=== PATIENT | male | born 1970 | race Caucasian/White ===

== ENCOUNTER 2023-01-12 13:47 | Inpatient (IN) | payer OTHER ==
[2023-01-12 14:24] VITALS: BMI 37.8
[2023-01-12] MEDS ORDERED: ACETAMINOPHEN 325 MG TABLET (FP) PO PRN (17:51)
[2023-01-12] MEDS ORDERED: LOPERAMIDE HCL 2 MG CAPSULE PO PRN (17:51)
[2023-01-12] MEDS ORDERED: hydrOXYzine PAMOATE 25 MG CAPSULE (FP) PO PRN (17:51)
[2023-01-12] MEDS ORDERED: guaiFENesin 600 MG TABLET.ER (FP) PO PRN (17:51)
[2023-01-12] MEDS ORDERED: POLYETHYLENE GLYCOL (HEALTHYLAX) 3350 17 GM PACKET PO PRN (17:51)
[2023-01-12] MEDS ORDERED: TUBERCULIN PPD 5 TU/0.1ML SYRINGE (IN PATIENT USE ONLY) ID ONE (17:51)
[2023-01-12] MEDS ORDERED: AMMONIUM LACTATE 12% LOTION 225 GM BOTTLE TP PRN (17:51)
[2023-01-12] MEDS ORDERED: NICOTINE 10 MG CARTRIDGE (INHALER) IH PRN (17:51)
[2023-01-12] MEDS ORDERED: MAGNESIUM HYDROX 2400MG/30ML ORAL SUSPENSION 30 ML CUP PO PRN (17:51)
[2023-01-12] MEDS ORDERED: NALOXONE HCL (KLOXXADO) 8 MG SPRAY NS PRN (17:51)
[2023-01-12] MEDS ORDERED: IBUPROFEN 400 MG TABLET (FP) PO PRN (17:51)
[2023-01-12] MEDS ORDERED: BENZOCAINE/MENTHOL (CHLORASEPTIC ) LOZENGE MM PRN (17:51)
[2023-01-12] MEDS ORDERED: IBUPROFEN 600 MG TABLET (FP) PO PRN (17:51)
[2023-01-12] MEDS ORDERED: MAG HYDROX/AL HYDROX/SIMETH 30 ML UNIT-DOSE CUP PO PRN (17:51)
[2023-01-12] MEDS ORDERED: BENZONATATE 200 MG CAPSULE PO PRN (17:51)
[2023-01-12] MEDS ORDERED: COLLOIDAL OATMEAL 1 BAR EACH TP PRN (17:51)
[2023-01-12] MEDS ORDERED: NALOXONE HCL 0.4 MG/ML VIAL IM PRN (17:51)
[2023-01-13] MEDS ORDERED: TUBERCULIN PPD 5 TU/0.1ML VIAL ID ONE (01:39)
[2023-01-13] MEDS: MELATONIN 5 MG TABLETS PO SCH ×2 (01:41→21:19)
[2023-01-13] MEDS: THIAMINE HCL 100 MG TABLET (FP) PO SCH ×2 (01:41→21:19)
[2023-01-13] MEDS: NICOTINE 21 MG/24 HOURS TOPICAL PATCH TD SCH (11:08)
[2023-01-13] MEDS: PRENATAL VITAMINS W/ FOLIC ACID TABLET (FP) PO SCH (11:08)
[2023-01-13 11:57] LABS: HEMATOCRIT 36.7 % (35.4-49); HEMOGLOBIN 12.8 GM/dL (11.7-16.9); MCH 32.3 pg (25.7-33.7); MEAN CELL VOLUME 92.3 fl (80-96); MEAN PLT VOLUME 7.2 fl (7.5-11.1); PLATELET COUNT 391 10^3/uL (134-434); RBC 3.98 M/mm3 (4.00-5.60); RDW 13.2 % (11.9-15.9); WHITE BLOOD COUNT 7.3 K/mm3 (4.0-10.0)
[2023-01-13 12:09] LABS: CALCIUM 8.4 mg/dL (8.5-10.1)
[2023-01-13 12:10] LABS: BLOOD UREA NITROGEN 13.8 mg/dL (7-18)
[2023-01-13 12:13] LABS: CREATININE 0.9 mg/dL (0.55-1.3)
[2023-01-13 12:14] LABS: BILIRUBIN,TOTAL 0.3 mg/dL (0.2-1); TOT PROT 6.1 g/dl (6.4-8.2)
[2023-01-13] MEDS ORDERED: traZODone HCL 100 MG TABLET (FP) PO SCH (22:00)
[2023-01-14] MEDS: NICOTINE 21 MG/24 HOURS TOPICAL PATCH TD SCH (10:33)
[2023-01-14] MEDS: PRENATAL VITAMINS W/ FOLIC ACID TABLET (FP) PO SCH (10:34)
[2023-01-14 17:19] VITALS: BP 134/78; PULSE 76; RESP 20; TEMP 96.9
[2023-01-15] MEDS ORDERED: PNEUMOC 20-VAL CONJ-DIP CRM/PF 0.5 ML SYRINGE IM ONE (12:00)
== END 2023-01-14 17:44 | disposition home or self-care (01) | DRG 895 ==
LOC: YASAS 13:47 → Y3W 01-13 01:16
PROVIDERS: ADMIT Allergy & Immunology; ATTEND Psychiatry & Neurology Pain Medicine
PROC: HZ42ZZZ Group Counseling for Substance Abuse Treatment, Cognitive-Behavioral (ICD-10-PCS; principal; 2023-01-13)
DX: F10.20 Alcohol dependence, uncomplicated (principal); F14.20 Cocaine dependence, uncomplicated; F17.210 Nicotine dependence, cigarettes, uncomplicated; F25.0 Schizoaffective disorder, bipolar type; G47.33 Obstructive sleep apnea (adult) (pediatric); Z62.810 Personal history of physical and sexual abuse in childhood; E66.9 Obesity, unspecified; Z68.37 Body mass index [BMI] 37.0-37.9, adult
CPT/HCPCS: 36415; 80053; 85027; 86780; 87811; C9803-CS; U0003; U0005

== ENCOUNTER 2023-01-16 11:59 | Inpatient (IN) | payer OTHER ==
[2023-01-16 12:58] VITALS: BMI 38.0
[2023-01-16] MEDS ORDERED: NALOXONE HCL (KLOXXADO) 8 MG SPRAY NS PRN (13:02)
[2023-01-16] MEDS ORDERED: BENZOCAINE/MENTHOL (CHLORASEPTIC ) LOZENGE MM PRN (13:02)
[2023-01-16] MEDS ORDERED: MELATONIN 5 MG TABLETS PO PRN (13:02)
[2023-01-16] MEDS ORDERED: guaiFENesin 600 MG TABLET.ER (FP) PO PRN (13:02)
[2023-01-16] MEDS ORDERED: MAGNESIUM HYDROX 2400MG/30ML ORAL SUSPENSION 30 ML CUP PO PRN (13:02)
[2023-01-16] MEDS ORDERED: MAG HYDROX/AL HYDROX/SIMETH 30 ML UNIT-DOSE CUP PO PRN (13:02)
[2023-01-16] MEDS ORDERED: P-EPHED 60MG/TRIPROLIDI 2.5MG TABLET PO PRN (13:02)
[2023-01-16] MEDS ORDERED: AMMONIUM LACTATE 12% LOTION 225 GM BOTTLE TP PRN (13:02)
[2023-01-16] MEDS ORDERED: LOPERAMIDE HCL 2 MG CAPSULE PO PRN (13:02)
[2023-01-16] MEDS ORDERED: ACETAMINOPHEN 325 MG TABLET (FP) PO PRN (13:02)
[2023-01-16] MEDS ORDERED: COLLOIDAL OATMEAL 1 BAR EACH TP PRN (13:02)
[2023-01-16] MEDS ORDERED: POLYETHYLENE GLYCOL (HEALTHYLAX) 3350 17 GM PACKET PO PRN (13:02)
[2023-01-16] MEDS ORDERED: IBUPROFEN 400 MG TABLET (FP) PO PRN (13:02)
[2023-01-16] MEDS ORDERED: IBUPROFEN 600 MG TABLET (FP) PO PRN (13:02)
[2023-01-16] MEDS ORDERED: NICOTINE POLACRILEX 2 MG GUM BUC PRN (13:02)
[2023-01-16] MEDS ORDERED: NALOXONE HCL 0.4 MG/ML VIAL IVPUSH PRN (13:02)
[2023-01-16] MEDS ORDERED: hydrOXYzine PAMOATE 25 MG CAPSULE (FP) PO PRN (13:02)
[2023-01-16] MEDS ORDERED: BENZONATATE 200 MG CAPSULE PO PRN (13:02)
[2023-01-16] MEDS: THIAMINE HCL 100 MG TABLET (FP) PO SCH (22:03)
[2023-01-17] MEDS: PRENATAL VITAMINS W/ FOLIC ACID TABLET (FP) PO SCH (09:41)
[2023-01-17] MEDS: THIAMINE HCL 100 MG TABLET (FP) PO SCH (21:15)
[2023-01-17] MEDS: traZODone HCL 50 MG TABLET (FP) PO PRN (21:16)
[2023-01-18] MEDS: PRENATAL VITAMINS W/ FOLIC ACID TABLET (FP) PO SCH (10:30)
[2023-01-18] MEDS: traZODone HCL 50 MG TABLET (FP) PO PRN (22:09)
[2023-01-18] MEDS: THIAMINE HCL 100 MG TABLET (FP) PO SCH (22:09)
[2023-01-19] MEDS: PRENATAL VITAMINS W/ FOLIC ACID TABLET (FP) PO SCH (10:22)
[2023-01-19] MEDS: THIAMINE HCL 100 MG TABLET (FP) PO SCH (21:27)
[2023-01-19] MEDS: traZODone HCL 50 MG TABLET (FP) PO PRN (21:27)
[2023-01-20] MEDS: PRENATAL VITAMINS W/ FOLIC ACID TABLET (FP) PO SCH (10:50)
[2023-01-20] MEDS: traZODone HCL 50 MG TABLET (FP) PO PRN (21:14)
[2023-01-20] MEDS: THIAMINE HCL 100 MG TABLET (FP) PO SCH (21:14)
[2023-01-21] MEDS: PRENATAL VITAMINS W/ FOLIC ACID TABLET (FP) PO SCH (10:12)
[2023-01-21] MEDS: traZODone HCL 50 MG TABLET (FP) PO PRN (21:28)
[2023-01-21] MEDS: THIAMINE HCL 100 MG TABLET (FP) PO SCH (21:29)
[2023-01-22] MEDS: PRENATAL VITAMINS W/ FOLIC ACID TABLET (FP) PO SCH (10:38)
[2023-01-22] MEDS: traZODone HCL 50 MG TABLET (FP) PO PRN (21:16)
[2023-01-22] MEDS: THIAMINE HCL 100 MG TABLET (FP) PO SCH (21:16)
[2023-01-23] MEDS: PRENATAL VITAMINS W/ FOLIC ACID TABLET (FP) PO SCH (10:44)
[2023-01-23] MEDS ORDERED: TUBERCULIN PPD 5 TU/0.1ML VIAL ID ONE (14:39)
[2023-01-23] MEDS: traZODone HCL 50 MG TABLET (FP) PO PRN (21:21)
[2023-01-23] MEDS: THIAMINE HCL 100 MG TABLET (FP) PO SCH (21:21)
[2023-01-24] MEDS: PRENATAL VITAMINS W/ FOLIC ACID TABLET (FP) PO SCH (10:16)
[2023-01-24] MEDS: THIAMINE HCL 100 MG TABLET (FP) PO SCH (22:03)
[2023-01-24] MEDS: traZODone HCL 50 MG TABLET (FP) PO PRN (22:04)
[2023-01-25] MEDS: PRENATAL VITAMINS W/ FOLIC ACID TABLET (FP) PO SCH (10:23)
[2023-01-25] MEDS: THIAMINE HCL 100 MG TABLET (FP) PO SCH (21:39)
[2023-01-25] MEDS: traZODone HCL 50 MG TABLET (FP) PO PRN (21:39)
[2023-01-26] MEDS: PRENATAL VITAMINS W/ FOLIC ACID TABLET (FP) PO SCH (10:17)
[2023-01-26] MEDS: THIAMINE HCL 100 MG TABLET (FP) PO SCH (21:15)
[2023-01-26] MEDS: traZODone HCL 50 MG TABLET (FP) PO PRN (21:15)
[2023-01-27] MEDS: PRENATAL VITAMINS W/ FOLIC ACID TABLET (FP) PO SCH (10:31)
[2023-01-27] MEDS: traZODone HCL 50 MG TABLET (FP) PO PRN (21:13)
[2023-01-27] MEDS: THIAMINE HCL 100 MG TABLET (FP) PO SCH (21:13)
[2023-01-28] MEDS: PRENATAL VITAMINS W/ FOLIC ACID TABLET (FP) PO SCH (10:30)
[2023-01-28] MEDS: THIAMINE HCL 100 MG TABLET (FP) PO SCH (21:42)
[2023-01-29] MEDS: PRENATAL VITAMINS W/ FOLIC ACID TABLET (FP) PO SCH (11:07)
[2023-01-29] MEDS: THIAMINE HCL 100 MG TABLET (FP) PO SCH (21:37)
[2023-01-30 06:31] VITALS: BP 126/76; PULSE 60; RESP 17; TEMP 98
== END 2023-01-30 08:50 | disposition home or self-care (01) | DRG 895 ==
LOC: YASAS 11:59 → Y3W 16:00
PROVIDERS: ADMIT Allergy & Immunology; ATTEND Allergy & Immunology
PROC: HZ42ZZZ Group Counseling for Substance Abuse Treatment, Cognitive-Behavioral (ICD-10-PCS; principal; 2023-01-16)
DX: F10.20 Alcohol dependence, uncomplicated (principal); F14.20 Cocaine dependence, uncomplicated; F19.282 Other psychoactive substance dependence with psychoactive substance-induced sleep disorder; F12.20 Cannabis dependence, uncomplicated; F17.210 Nicotine dependence, cigarettes, uncomplicated; F25.0 Schizoaffective disorder, bipolar type; G47.33 Obstructive sleep apnea (adult) (pediatric); Z62.810 Personal history of physical and sexual abuse in childhood; E66.9 Obesity, unspecified; Z68.38 Body mass index [BMI] 38.0-38.9, adult
CPT/HCPCS: 82962; 87811; C9803-CS; U0003; U0005

== ENCOUNTER 2023-03-02 13:21 | Inpatient (IN) | payer OTHER ==
[2023-03-02 14:35] VITALS: BMI 37.3
[2023-03-02] MEDS ORDERED: MAGNESIUM HYDROX 2400MG/30ML ORAL SUSPENSION 30 ML CUP PO PRN (16:44)
[2023-03-02] MEDS ORDERED: NALOXONE HCL 0.4 MG/ML VIAL IM PRN (16:44)
[2023-03-02] MEDS ORDERED: hydrOXYzine PAMOATE 25 MG CAPSULE (FP) PO PRN (16:44)
[2023-03-02] MEDS ORDERED: MAG HYDROX/AL HYDROX/SIMETH 30 ML UNIT-DOSE CUP PO PRN (16:44)
[2023-03-02] MEDS ORDERED: AMMONIUM LACTATE 12% LOTION 225 GM BOTTLE TP PRN (16:44)
[2023-03-02] MEDS ORDERED: NALOXONE HCL (KLOXXADO) 8 MG SPRAY NS PRN (16:44)
[2023-03-02] MEDS ORDERED: LOPERAMIDE HCL 2 MG CAPSULE PO PRN (16:44)
[2023-03-02] MEDS ORDERED: COLLOIDAL OATMEAL 1 BAR EACH TP PRN (16:44)
[2023-03-02] MEDS ORDERED: NICOTINE 10 MG CARTRIDGE (INHALER) IH PRN (16:44)
[2023-03-02] MEDS ORDERED: guaiFENesin 600 MG TABLET.ER (FP) PO PRN (16:44)
[2023-03-02] MEDS ORDERED: IBUPROFEN 400 MG TABLET (FP) PO PRN (16:44)
[2023-03-02] MEDS ORDERED: BENZONATATE 200 MG CAPSULE PO PRN (16:44)
[2023-03-02] MEDS: MELATONIN 5 MG TABLETS PO SCH (21:57)
[2023-03-02] MEDS: THIAMINE HCL 100 MG TABLET (FP) PO SCH (21:57)
[2023-03-03] MEDS: NICOTINE 21 MG/24 HOURS TOPICAL PATCH TD SCH (09:49)
[2023-03-03] MEDS: PRENATAL VITAMINS W/ FOLIC ACID TABLET (FP) PO SCH (09:50)
[2023-03-03 13:21] LABS: HEMATOCRIT 39.5 % (35.4-49); HEMOGLOBIN 13.5 GM/dL (11.7-16.9); MCH 30.7 pg (25.7-33.7); MCHC 34.1 g/dl (32.0-35.9); MEAN CELL VOLUME 89.9 fl (80-96); MEAN PLT VOLUME 7.4 fl (7.5-11.1); PLATELET COUNT 407 10^3/uL (134-434); RBC 4.39 M/mm3 (4.00-5.60); RDW 13.4 % (11.9-15.9); WHITE BLOOD COUNT 8.2 K/mm3 (4.0-10.0)
[2023-03-03 13:35] LABS: POTASSIUM 3.9 mmol/L (3.5-5.1)
[2023-03-03 13:39] LABS: ALBUMIN 3.1 g/dl (3.4-5.0); BLOOD UREA NITROGEN 13.3 mg/dL (7-18)
[2023-03-03 13:42] LABS: CREATININE 1.1 mg/dL (0.55-1.3)
[2023-03-03 13:43] LABS: BILIRUBIN,TOTAL 0.5 mg/dL (0.2-1); TOT PROT 6.1 g/dl (6.4-8.2)
[2023-03-03] MEDS: THIAMINE HCL 100 MG TABLET (FP) PO SCH (21:53)
[2023-03-03] MEDS: MELATONIN 5 MG TABLETS PO SCH (21:53)
[2023-03-03] MEDS ORDERED: traZODone HCL 100 MG TABLET (FP) PO SCH (22:00)
[2023-03-04] MEDS: PRENATAL VITAMINS W/ FOLIC ACID TABLET (FP) PO SCH (09:08)
[2023-03-04] MEDS: NICOTINE 21 MG/24 HOURS TOPICAL PATCH TD SCH (09:08)
[2023-03-04] MEDS ORDERED: traZODone HCL 50 MG TABLET (FP) PO SCH (16:41)
[2023-03-04] MEDS: MELATONIN 5 MG TABLETS PO SCH (21:34)
[2023-03-04] MEDS: THIAMINE HCL 100 MG TABLET (FP) PO SCH (21:34)
[2023-03-04 23:14] LABS: URINE APPEARANCE CLEAR; URINE BILIRUBIN NEGATIVE (NEGATIVE); URINE COLOR YELLOW; URINE GLUCOSE (UA) NEGATIVE (NEGATIVE); URINE KETONE NEGATIVE (NEGATIVE); URINE LEUK ESTERASE NEGATIVE (NEGATIVE); URINE NITRITE NEGATIVE (NEGATIVE); URINE PROTEIN NEGATIVE (NEGATIVE); URINE UROBILINOGEN 0.2 mg/dL (0.2-1.0)
[2023-03-05] MEDS: PRENATAL VITAMINS W/ FOLIC ACID TABLET (FP) PO SCH (10:06)
[2023-03-05] MEDS: NICOTINE 21 MG/24 HOURS TOPICAL PATCH TD SCH (10:07)
[2023-03-05] MEDS: IBUPROFEN 600 MG TABLET (FP) PO PRN (13:17)
[2023-03-05] MEDS: ACETAMINOPHEN 325 MG TABLET (FP) PO PRN (14:01)
[2023-03-05] MEDS: traZODone HCL 100 MG TABLET (FP) PO SCH (21:39)
[2023-03-05] MEDS: THIAMINE HCL 100 MG TABLET (FP) PO SCH (21:39)
[2023-03-05] MEDS: MELATONIN 5 MG TABLETS PO SCH (21:39)
[2023-03-05] MEDS: HYDROCORTISONE 2.5% TOPICAL CREAM 30 GM TUBE TP SCH (22:10)
[2023-03-06] MEDS: PRENATAL VITAMINS W/ FOLIC ACID TABLET (FP) PO SCH (09:17)
[2023-03-06] MEDS: HYDROCORTISONE 2.5% TOPICAL CREAM 30 GM TUBE TP SCH ×2 (09:17→21:08)
[2023-03-06] MEDS: NICOTINE 21 MG/24 HOURS TOPICAL PATCH TD SCH (09:18)
[2023-03-06] MEDS ORDERED: NICOTINE 21 MG/24 HOURS TOPICAL PATCH TD PRN (14:18)
[2023-03-06] MEDS: MELATONIN 5 MG TABLETS PO SCH (21:07)
[2023-03-06] MEDS: traZODone HCL 100 MG TABLET (FP) PO SCH (21:07)
[2023-03-06] MEDS: hydrOXYzine PAMOATE 25 MG CAPSULE (FP) PO PRN (21:07)
[2023-03-06] MEDS: THIAMINE HCL 100 MG TABLET (FP) PO SCH (21:08)
[2023-03-06] MEDS: PALIPERIDONE 1.5 MG ER TABLET PO SCH (21:09)
[2023-03-07] MEDS: PRENATAL VITAMINS W/ FOLIC ACID TABLET (FP) PO SCH (09:25)
[2023-03-07] MEDS: HYDROCORTISONE 2.5% TOPICAL CREAM 30 GM TUBE TP SCH ×2 (09:26→21:14)
[2023-03-07] MEDS: IBUPROFEN 600 MG TABLET (FP) PO PRN (16:19)
[2023-03-07] MEDS: ACETAMINOPHEN 325 MG TABLET (FP) PO PRN (17:42)
[2023-03-07] MEDS: THIAMINE HCL 100 MG TABLET (FP) PO SCH (21:14)
[2023-03-07] MEDS: traZODone HCL 100 MG TABLET (FP) PO SCH (21:14)
[2023-03-07] MEDS: PALIPERIDONE 1.5 MG ER TABLET PO SCH (21:14)
[2023-03-07] MEDS: MELATONIN 5 MG TABLETS PO SCH (21:15)
[2023-03-07] MEDS: hydrOXYzine PAMOATE 25 MG CAPSULE (FP) PO PRN (21:15)
[2023-03-08] MEDS: HYDROCORTISONE 2.5% TOPICAL CREAM 30 GM TUBE TP SCH ×2 (09:54→21:09)
[2023-03-08] MEDS: PRENATAL VITAMINS W/ FOLIC ACID TABLET (FP) PO SCH (09:54)
[2023-03-08] MEDS: PALIPERIDONE 1.5 MG ER TABLET PO SCH (21:08)
[2023-03-08] MEDS: THIAMINE HCL 100 MG TABLET (FP) PO SCH (21:10)
[2023-03-08] MEDS: traZODone HCL 100 MG TABLET (FP) PO SCH (21:10)
[2023-03-08] MEDS: MELATONIN 5 MG TABLETS PO SCH (21:10)
[2023-03-08] MEDS: hydrOXYzine PAMOATE 25 MG CAPSULE (FP) PO PRN (21:13)
[2023-03-09] MEDS: PRENATAL VITAMINS W/ FOLIC ACID TABLET (FP) PO SCH (10:07)
[2023-03-09] MEDS: HYDROCORTISONE 2.5% TOPICAL CREAM 30 GM TUBE TP SCH ×2 (10:07→22:10)
[2023-03-09] MEDS: IBUPROFEN 600 MG TABLET (FP) PO PRN (12:51)
[2023-03-09] MEDS: ACETAMINOPHEN 325 MG TABLET (FP) PO PRN (14:25)
[2023-03-09] MEDS: traZODone HCL 100 MG TABLET (FP) PO SCH (21:41)
[2023-03-09] MEDS: THIAMINE HCL 100 MG TABLET (FP) PO SCH (21:41)
[2023-03-09] MEDS: MELATONIN 5 MG TABLETS PO SCH (21:41)
[2023-03-09] MEDS: hydrOXYzine PAMOATE 25 MG CAPSULE (FP) PO PRN (21:42)
[2023-03-09] MEDS: PALIPERIDONE 1.5 MG ER TABLET PO SCH (21:44)
[2023-03-10] MEDS: HYDROCORTISONE 2.5% TOPICAL CREAM 30 GM TUBE TP SCH ×2 (09:44→21:36)
[2023-03-10] MEDS: PRENATAL VITAMINS W/ FOLIC ACID TABLET (FP) PO SCH (09:44)
[2023-03-10] MEDS: traZODone HCL 100 MG TABLET (FP) PO SCH (21:35)
[2023-03-10] MEDS: MELATONIN 5 MG TABLETS PO SCH (21:35)
[2023-03-10] MEDS: THIAMINE HCL 100 MG TABLET (FP) PO SCH (21:35)
[2023-03-10] MEDS: hydrOXYzine PAMOATE 25 MG CAPSULE (FP) PO PRN (21:38)
[2023-03-10] MEDS: PALIPERIDONE 6 MG TAB.ER.24 PO SCH (21:38)
[2023-03-11] MEDS: PRENATAL VITAMINS W/ FOLIC ACID TABLET (FP) PO SCH (09:40)
[2023-03-11] MEDS: HYDROCORTISONE 2.5% TOPICAL CREAM 30 GM TUBE TP SCH ×2 (09:40→21:30)
[2023-03-11] MEDS: IBUPROFEN 600 MG TABLET (FP) PO PRN ×2 (11:20→16:30)
[2023-03-11] MEDS: POLYETHYLENE GLYCOL (HEALTHYLAX) 3350 17 GM PACKET PO PRN (11:20)
[2023-03-11] MEDS ORDERED: LACTULOSE 20 GM/30 ML UDC (FOR ORAL USE ONLY) PO PRN (12:31)
[2023-03-11] MEDS: DOCUSATE SODIUM 100 MG CAPSULE (FP) PO PRN (13:46)
[2023-03-11] MEDS: THIAMINE HCL 100 MG TABLET (FP) PO SCH (21:30)
[2023-03-11] MEDS: PALIPERIDONE 6 MG TAB.ER.24 PO SCH (21:30)
[2023-03-11] MEDS: traZODone HCL 100 MG TABLET (FP) PO SCH (21:30)
[2023-03-11] MEDS: MELATONIN 5 MG TABLETS PO SCH (21:30)
[2023-03-11] MEDS: hydrOXYzine PAMOATE 25 MG CAPSULE (FP) PO PRN (21:31)
[2023-03-12] MEDS: PRENATAL VITAMINS W/ FOLIC ACID TABLET (FP) PO SCH (10:27)
[2023-03-12] MEDS: HYDROCORTISONE 2.5% TOPICAL CREAM 30 GM TUBE TP SCH ×2 (10:27→21:31)
[2023-03-12] MEDS: POLYETHYLENE GLYCOL (HEALTHYLAX) 3350 17 GM PACKET PO PRN (10:28)
[2023-03-12] MEDS: traZODone HCL 100 MG TABLET (FP) PO SCH (21:29)
[2023-03-12] MEDS: hydrOXYzine PAMOATE 25 MG CAPSULE (FP) PO PRN (21:29)
[2023-03-12] MEDS: THIAMINE HCL 100 MG TABLET (FP) PO SCH (21:29)
[2023-03-12] MEDS: MELATONIN 5 MG TABLETS PO SCH (21:29)
[2023-03-12] MEDS: IBUPROFEN 600 MG TABLET (FP) PO PRN (21:30)
[2023-03-12] MEDS: PALIPERIDONE 6 MG TAB.ER.24 PO SCH (22:16)
[2023-03-13] MEDS: PRENATAL VITAMINS W/ FOLIC ACID TABLET (FP) PO SCH (09:42)
[2023-03-13] MEDS: DOCUSATE SODIUM 100 MG CAPSULE (FP) PO PRN ×2 (09:42→21:34)
[2023-03-13] MEDS: POLYETHYLENE GLYCOL (HEALTHYLAX) 3350 17 GM PACKET PO PRN (09:42)
[2023-03-13] MEDS: HYDROCORTISONE 2.5% TOPICAL CREAM 30 GM TUBE TP SCH ×2 (10:22→21:51)
[2023-03-13] MEDS: hydrOXYzine PAMOATE 25 MG CAPSULE (FP) PO PRN (21:33)
[2023-03-13] MEDS: traZODone HCL 100 MG TABLET (FP) PO SCH (21:33)
[2023-03-13] MEDS: MELATONIN 5 MG TABLETS PO SCH (21:34)
[2023-03-13] MEDS: THIAMINE HCL 100 MG TABLET (FP) PO SCH (21:34)
[2023-03-13] MEDS: PALIPERIDONE 6 MG TAB.ER.24 PO SCH (21:36)
[2023-03-14] MEDS: PRENATAL VITAMINS W/ FOLIC ACID TABLET (FP) PO SCH (09:25)
[2023-03-14] MEDS: POLYETHYLENE GLYCOL (HEALTHYLAX) 3350 17 GM PACKET PO PRN (09:26)
[2023-03-14] MEDS: HYDROCORTISONE 2.5% TOPICAL CREAM 30 GM TUBE TP SCH ×2 (09:27→21:19)
[2023-03-14] MEDS: THIAMINE HCL 100 MG TABLET (FP) PO SCH (21:18)
[2023-03-14] MEDS: DOCUSATE SODIUM 100 MG CAPSULE (FP) PO PRN (21:18)
[2023-03-14] MEDS: PALIPERIDONE 6 MG TAB.ER.24 PO SCH (21:19)
[2023-03-14] MEDS: traZODone HCL 100 MG TABLET (FP) PO SCH (21:19)
[2023-03-14] MEDS: hydrOXYzine PAMOATE 25 MG CAPSULE (FP) PO PRN (21:19)
[2023-03-14] MEDS: MELATONIN 5 MG TABLETS PO SCH (21:19)
[2023-03-15] MEDS: ACETAMINOPHEN 325 MG TABLET (FP) PO PRN (06:16)
[2023-03-15] MEDS: PRENATAL VITAMINS W/ FOLIC ACID TABLET (FP) PO SCH (09:23)
[2023-03-15] MEDS: POLYETHYLENE GLYCOL (HEALTHYLAX) 3350 17 GM PACKET PO PRN (09:23)
[2023-03-15] MEDS: HYDROCORTISONE 2.5% TOPICAL CREAM 30 GM TUBE TP SCH ×2 (09:23→21:15)
[2023-03-15] MEDS: MELATONIN 5 MG TABLETS PO SCH (21:13)
[2023-03-15] MEDS: THIAMINE HCL 100 MG TABLET (FP) PO SCH (21:13)
[2023-03-15] MEDS: IBUPROFEN 600 MG TABLET (FP) PO PRN (21:14)
[2023-03-15] MEDS: hydrOXYzine PAMOATE 25 MG CAPSULE (FP) PO PRN (21:14)
[2023-03-15] MEDS: traZODone HCL 100 MG TABLET (FP) PO SCH (21:14)
[2023-03-15] MEDS: PALIPERIDONE 6 MG TAB.ER.24 PO SCH (21:15)
[2023-03-15] MEDS ORDERED: ASPIRIN 81 MG CHEWABLE TABLETS PO ONE (22:42)
[2023-03-15] MEDS ORDERED: ASPIRIN COATED 81 MG TABLET.EC ONE (22:44)
[2023-03-16] MEDS: BENZOCAINE/MENTHOL (CHLORASEPTIC ) LOZENGE MM PRN ×2 (08:16→15:06)
[2023-03-16] MEDS: HYDROCORTISONE 2.5% TOPICAL CREAM 30 GM TUBE TP SCH (09:53)
[2023-03-16] MEDS: PRENATAL VITAMINS W/ FOLIC ACID TABLET (FP) PO SCH (09:53)
[2023-03-16] MEDS: ACETAMINOPHEN 325 MG TABLET (FP) PO PRN (09:55)
[2023-03-16 10:01] VITALS: RESP 18
[2023-03-16] MEDS ORDERED: HYDROCORTISONE 2.5% TOPICAL CREAM 30 GM TUBE TP PRN (15:51)
[2023-03-16 18:41] VITALS: BP 95/67; PULSE 133; TEMP 101.2
[2023-03-16] MEDS: traZODone HCL 100 MG TABLET (FP) PO SCH (21:45)
[2023-03-16] MEDS: PALIPERIDONE 6 MG TAB.ER.24 PO SCH (21:46)
[2023-03-16] MEDS: THIAMINE HCL 100 MG TABLET (FP) PO SCH (21:46)
[2023-03-16] MEDS ORDERED: SUVOREXANT 5 MG TABLET PO PRN (22:00)
== END 2023-03-17 02:30 | disposition short-term general hospital (02) | DRG 895 ==
LOC: YASAS 13:21 → Y3E 16:33
PROVIDERS: ADMIT Allergy & Immunology; ATTEND Psychiatry & Neurology Pain Medicine
PROC: HZ42ZZZ Group Counseling for Substance Abuse Treatment, Cognitive-Behavioral (ICD-10-PCS; principal; 2023-03-01)
DX: F10.20 Alcohol dependence, uncomplicated (principal); F14.20 Cocaine dependence, uncomplicated; F19.282 Other psychoactive substance dependence with psychoactive substance-induced sleep disorder; R45.851 Suicidal ideations; F12.20 Cannabis dependence, uncomplicated; F17.210 Nicotine dependence, cigarettes, uncomplicated; F25.0 Schizoaffective disorder, bipolar type; G47.33 Obstructive sleep apnea (adult) (pediatric); J44.9 Chronic obstructive pulmonary disease, unspecified; E66.9 Obesity, unspecified; Z68.37 Body mass index [BMI] 37.0-37.9, adult; R00.0 Tachycardia, unspecified; R73.9 Hyperglycemia, unspecified; R50.9 Fever, unspecified; Z99.89 Dependence on other enabling machines and devices
CPT/HCPCS: 36415; 80053; 81003; 82962; 85027; 86780; 87635; 93005; 93010

== ENCOUNTER 2023-03-16 19:43 | Inpatient (IN) | payer OTHER ==
[2023-03-16] MEDS ORDERED: ALBUTEROL SO4 2.5/IPRATROPIUM 0.5 INH SOL 3 ML VIAL.NEB. NEB ONE ×2 (20:02→20:19)
[2023-03-16 20:03] VITALS: BMI 38.0
[2023-03-16] MEDS ORDERED: methylPREDNISolone NA SUCC 125 MG/2 ML VIAL IVPB ONE (20:03)
[2023-03-16] MEDS ORDERED: SODIUM CHLORIDE 0.9% 500 ML INFUS.BAG IV ONE (20:13)
[2023-03-16] MEDS ORDERED: methylPREDNISolone NA SUCC 125 MG/2 ML VIAL ONE (20:19)
[2023-03-16 20:37] LABS: BASO % 0.3 % (0-2.0); EOS % 0.2 % (0-4.5); HEMATOCRIT 42.8 % (35.4-49); HEMOGLOBIN 14.5 GM/dL (11.7-16.9); LYMPH % 2.6 % (8-40); MCHC 33.9 g/dl (32.0-35.9); MEAN CELL VOLUME 88.7 fl (80-96); MEAN PLT VOLUME 7.1 fl (7.5-11.1); MONO % 3.6 % (3.8-10.2); NEUT % 93.3 % (42.8-82.8); PLATELET COUNT 295 10^3/uL (134-434); RBC 4.83 M/mm3 (4.00-5.60); RDW 13.4 % (11.9-15.9); WHITE BLOOD COUNT 12.4 K/mm3 (4.0-10.0)
[2023-03-16 20:39] LABS: VENOUS BASE EXCESS 0.6 mmol/L (-2-2); VENOUS O2 SATURATION 39.8 % (70-80); VENOUS PCO2 42.2 mmHg (38-52); VENOUS PH 7.4 (7.310-7.410)
[2023-03-16 20:44] LABS: INR 1.26 (0.83-1.09); PROTHROMBIN TIME (PATIENT) 14.6 SEC (9.7-13.0)
[2023-03-16 20:47] LABS: ACTIVATED PTT 29.9 SECONDS (25.2-36.5)
[2023-03-16 20:58] LABS: POTASSIUM 4.1 mmol/L (3.5-5.1)
[2023-03-16 21:01] LABS: ALBUMIN 3.5 g/dl (3.4-5.0); BLOOD UREA NITROGEN 13.1 mg/dL (7-18)
[2023-03-16 21:04] LABS: CREATININE 1.1 mg/dL (0.55-1.3)
[2023-03-16 21:05] LABS: BILIRUBIN,TOTAL 0.6 mg/dL (0.2-1); TOT PROT 6.6 g/dl (6.4-8.2)
[2023-03-16 21:13] LABS: LACTIC ACID 2.2 mmol/L (0.4-2.0)
[2023-03-16] MEDS ORDERED: PENICILLIN G BENZATHINE 1,200,000 UNIT/2 ML PFS IM ONE ×2 (21:21→21:28)
[2023-03-16 21:25] LABS: ANISOCYTOSIS 1+; MACROCYTOSIS 0
[2023-03-16] MEDS ORDERED: CEFTRIAXONE 1,000 MG in DEXTROSE 5%-WATER - 50 ML IVPB ONE (21:45)
[2023-03-16] MEDS ORDERED: PIPERACILLIN/TAZOB 3.375 GM 3.375 GM in DEXTROSE 5%-WATER - 50 ML IVPB ONE (21:46)
[2023-03-16] MEDS ORDERED: AZITHROMYCIN IVPB 0 MG/0 ML BAG IVPB ONE (21:49)
[2023-03-16] MEDS ORDERED: CEFTRIAXONE 1 GM/50 ML BAG ONE (21:49)
[2023-03-16] MEDS ORDERED: PIPERACILLIN/TAZOB 3.375 GM 3.375 GM/50 ML BAG IVPB ONE (22:03)
[2023-03-17] MEDS ORDERED: AZITHROMYCIN IVPB 500 MG/250 ML BAG IVPB ONE ×2 (02:15→02:20)
[2023-03-17] MEDS ORDERED: methylPREDNISolone NA SUCC 40 MG/1 ML VIAL ONE (02:20)
[2023-03-17] MEDS: methylPREDNISolone NA SUCC 40 MG/1 ML VIAL IVPUSH SCH ×2 (02:47→10:02)
[2023-03-17 07:59] LABS: HEMATOCRIT 39.4 % (35.4-49); HEMOGLOBIN 13.3 GM/dL (11.7-16.9); MCHC 33.7 g/dl (32.0-35.9); MEAN PLT VOLUME 7.4 fl (7.5-11.1); PLATELET COUNT 309 10^3/uL (134-434); RBC 4.42 M/mm3 (4.00-5.60); RDW 13.5 % (11.9-15.9); WHITE BLOOD COUNT 14.1 K/mm3 (4.0-10.0)
[2023-03-17] MEDS ORDERED: hydrOXYzine PAMOATE 25 MG CAPSULE (FP) PO ONE (09:43)
[2023-03-17] MEDS ORDERED: traZODone HCL 50 MG TABLET (FP) ONE (09:43)
[2023-03-17] MEDS ORDERED: CEFTRIAXONE 1 GM in DEXTROSE 5%-WATER - 50 ML IVPB ONE ×2 (10:00→10:01)
[2023-03-17] MEDS: NICOTINE 21 MG/24 HOURS TOPICAL PATCH TD SCH (10:01)
[2023-03-17] MEDS: ENOXAPARIN NA (PORCINE) 40 MG/0.4 ML DISP.SYRIN SQ SCH (10:01)
[2023-03-17] MEDS: FOLIC ACID 1 MG TABLET (FP) PO SCH (10:03)
[2023-03-17] MEDS: THIAMINE HCL 100 MG TABLET (FP) PO SCH (10:03)
[2023-03-17] MEDS: hydrOXYzine PAMOATE 50 MG CAPSULE (FP) PO SCH (10:04)
[2023-03-17] MEDS: traZODone HCL 100 MG TABLET (FP) PO SCH (10:04)
[2023-03-17] MEDS: BUDESONIDE/FORMETEROL FUMARATE 80/4.5 mcg INHALER IH SCH ×2 (10:48→21:54)
[2023-03-17] MEDS: POLYETHYLENE GLYCOL (HEALTHYLAX) 3350 17 GM PACKET PO SCH (12:42)
[2023-03-17] MEDS: SODIUM CHLORIDE 1,000 ML IV SCH ×2 (12:42→21:57)
[2023-03-17] MEDS: SENNOSIDES 8.6MG TABLET (FP) PO SCH (21:54)
[2023-03-17] MEDS ORDERED: SENNOSIDES 8.8 MG/5 ML SYRUP PO SCH (22:00)
[2023-03-17] MEDS ORDERED: ALBUTEROL SO4 2.5/IPRATROPIUM 0.5 INH SOL 3 ML VIAL.NEB. NEB PRN (23:00)
[2023-03-17] MEDS: BENZOCAINE/MENTH/CETYLPYRD CL 1 EACH LOZENGE MM PRN (23:50)
[2023-03-18] MEDS: BENZOCAINE/MENTH/CETYLPYRD CL 1 EACH LOZENGE MM PRN (05:36)
[2023-03-18] MEDS ORDERED: hydrOXYzine PAMOATE 25 MG CAPSULE (FP) PO ONE (09:40)
[2023-03-18] MEDS ORDERED: traZODone HCL 50 MG TABLET (FP) ONE (09:40)
[2023-03-18] MEDS: ENOXAPARIN NA (PORCINE) 40 MG/0.4 ML DISP.SYRIN SQ SCH (09:49)
[2023-03-18] MEDS: predniSONE 20 MG TABLET (UD) PO SCH (09:49)
[2023-03-18] MEDS: hydrOXYzine PAMOATE 50 MG CAPSULE (FP) PO SCH (09:49)
[2023-03-18] MEDS: traZODone HCL 100 MG TABLET (FP) PO SCH ×2 (09:49→11:01)
[2023-03-18] MEDS: FOLIC ACID 1 MG TABLET (FP) PO SCH (09:49)
[2023-03-18] MEDS: POLYETHYLENE GLYCOL (HEALTHYLAX) 3350 17 GM PACKET PO SCH (09:50)
[2023-03-18] MEDS: THIAMINE HCL 100 MG TABLET (FP) PO SCH (09:50)
[2023-03-18] MEDS: NICOTINE 21 MG/24 HOURS TOPICAL PATCH TD SCH (09:50)
[2023-03-18] MEDS: AZITHROMYCIN IVPB 250 MG in DEXTROSE 5%-WATER - 250 ML IVPB SCH (09:52)
[2023-03-18] MEDS: BUDESONIDE/FORMETEROL FUMARATE 80/4.5 mcg INHALER IH SCH ×2 (10:01→22:40)
[2023-03-18 11:06] LABS: HEMATOCRIT 37.9 % (35.4-49); HEMOGLOBIN 12.4 GM/dL (11.7-16.9); MCH 30.2 pg (25.7-33.7); MCHC 32.7 g/dl (32.0-35.9); MEAN CELL VOLUME 92.1 fl (80-96); MEAN PLT VOLUME 7.8 fl (7.5-11.1); PLATELET COUNT 309 10^3/uL (134-434); RBC 4.12 M/mm3 (4.00-5.60); RDW 13.2 % (11.9-15.9); WHITE BLOOD COUNT 10.8 K/mm3 (4.0-10.0)
[2023-03-18] MEDS: CEFTRIAXONE 1 GM in DEXTROSE 5%-WATER - 50 ML IVPB SCH (11:26)
[2023-03-18 11:40] LABS: BLOOD UREA NITROGEN 16.1 mg/dL (7-18); CALCIUM 8.4 mg/dL (8.5-10.1)
[2023-03-18 11:43] LABS: CREATININE 0.8 mg/dL (0.55-1.3)
[2023-03-18 12:48] LABS: LACTIC ACID 2.6 mmol/L (0.4-2.0)
[2023-03-18 16:27] LABS: COCAINE, UR NEGATIVE (NEGATIVE); OPIATES, URI NEGATIVE (NEGATIVE); PHENCYCLIDINE,URINE NEGATIVE (NEGATIVE); URINE BARBITURATES NEGATIVE (NEGATIVE)
[2023-03-18 16:28] LABS: METHADONE, UR NEGATIVE (NEGATIVE); URINE AMPHETAMINES NEGATIVE (NEGATIVE); URINE BENZODIAZEPINES NEGATIVE (NEGATIVE)
[2023-03-18] MEDS: SODIUM CHLORIDE 1,000 ML IV SCH (18:16)
[2023-03-18] MEDS ORDERED: traZODone HCL 100 MG TABLET (FP) PO SCH (22:00)
[2023-03-18 22:26] VITALS: RESP 18
[2023-03-18] MEDS: SENNOSIDES 8.6MG TABLET (FP) PO SCH (22:40)
[2023-03-19 09:15] LABS: HEMATOCRIT 38.5 % (35.4-49); HEMOGLOBIN 12.7 GM/dL (11.7-16.9); MCH 29.8 pg (25.7-33.7); MCHC 32.9 g/dl (32.0-35.9); MEAN CELL VOLUME 90.8 fl (80-96); MEAN PLT VOLUME 7.8 fl (7.5-11.1); PLATELET COUNT 347 10^3/uL (134-434); RBC 4.24 M/mm3 (4.00-5.60); RDW 13.2 % (11.9-15.9); WHITE BLOOD COUNT 8.9 K/mm3 (4.0-10.0)
[2023-03-19 09:24] LABS: POTASSIUM 4.2 mmol/L (3.5-5.1)
[2023-03-19 09:29] LABS: BLOOD UREA NITROGEN 16.6 mg/dL (7-18)
[2023-03-19 09:30] LABS: ALBUMIN 2.9 g/dl (3.4-5.0)
[2023-03-19] MEDS ORDERED: hydrOXYzine PAMOATE 25 MG CAPSULE (FP) PO ONE (09:32)
[2023-03-19 09:33] LABS: BILIRUBIN,TOTAL 0.2 mg/dL (0.2-1); CREATININE 0.8 mg/dL (0.55-1.3)
[2023-03-19 09:35] LABS: TOT PROT 5.7 g/dl (6.4-8.2)
[2023-03-19] MEDS: CEFTRIAXONE 1 GM in DEXTROSE 5%-WATER - 50 ML IVPB SCH (09:44)
[2023-03-19] MEDS: NICOTINE 21 MG/24 HOURS TOPICAL PATCH TD SCH (09:44)
[2023-03-19] MEDS: THIAMINE HCL 100 MG TABLET (FP) PO SCH (09:45)
[2023-03-19] MEDS: POLYETHYLENE GLYCOL (HEALTHYLAX) 3350 17 GM PACKET PO SCH (09:45)
[2023-03-19] MEDS: predniSONE 20 MG TABLET (UD) PO SCH (09:45)
[2023-03-19] MEDS: hydrOXYzine PAMOATE 50 MG CAPSULE (FP) PO SCH (09:45)
[2023-03-19] MEDS: FOLIC ACID 1 MG TABLET (FP) PO SCH (09:46)
[2023-03-19] MEDS: ENOXAPARIN NA (PORCINE) 40 MG/0.4 ML DISP.SYRIN SQ SCH (09:46)
[2023-03-19 09:47] LABS: CALCIUM 8.9 mg/dL (8.5-10.1)
[2023-03-19] MEDS: BENZOCAINE/MENTH/CETYLPYRD CL 1 EACH LOZENGE MM PRN (09:47)
[2023-03-19] MEDS: BUDESONIDE/FORMETEROL FUMARATE 80/4.5 mcg INHALER IH SCH (09:59)
[2023-03-19] MEDS: AZITHROMYCIN IVPB 250 MG in DEXTROSE 5%-WATER - 250 ML IVPB SCH (10:26)
[2023-03-19 10:55] LABS: ANISOCYTOSIS 1+; MACROCYTOSIS 0
[2023-03-19 12:49] VITALS: BP 109/71; PULSE 60; TEMP 98.3
== END 2023-03-19 13:22 | disposition other institution (70) | DRG 194 ==
LOC: JER 19:43 → JERBED 21:47 → OBSVTOIN 22:48 → J7W 03-17 04:21
PROVIDERS: ADMIT Internal Medicine
DX: J18.9 Pneumonia, unspecified organism (principal); J44.1 Chronic obstructive pulmonary disease with (acute) exacerbation; J02.0 Streptococcal pharyngitis; F20.9 Schizophrenia, unspecified; F31.9 Bipolar disorder, unspecified; I10 Essential (primary) hypertension; F10.10 Alcohol abuse, uncomplicated; F17.210 Nicotine dependence, cigarettes, uncomplicated; F19.10 Other psychoactive substance abuse, uncomplicated; E78.5 Hyperlipidemia, unspecified; E66.9 Obesity, unspecified; Z68.38 Body mass index [BMI] 38.0-38.9, adult; G47.33 Obstructive sleep apnea (adult) (pediatric)
CPT/HCPCS: 0241U-QW; 36415; 71045-TC-FY; 80048; 80053; 80307; 82803; 83605; 83735; 84484; 85025; 85027; 85610; 85730; 87040; 87651; 93005; 93010; 97116-GP; 97162-GP; 99285-25; G0378

== ENCOUNTER 2023-03-19 13:36 | Inpatient (IN) | payer OTHER ==
[2023-03-19 14:26] VITALS: BMI 38.0
[2023-03-19] MEDS ORDERED: COLLOIDAL OATMEAL 1 BAR EACH TP PRN (14:34)
[2023-03-19] MEDS ORDERED: NICOTINE 10 MG CARTRIDGE (INHALER) IH PRN (14:34)
[2023-03-19] MEDS ORDERED: IBUPROFEN 400 MG TABLET (FP) PO PRN (14:34)
[2023-03-19] MEDS ORDERED: ACETAMINOPHEN 325 MG TABLET (FP) PO PRN (14:34)
[2023-03-19] MEDS ORDERED: guaiFENesin 600 MG TABLET.ER (FP) PO PRN (14:34)
[2023-03-19] MEDS ORDERED: IBUPROFEN 600 MG TABLET (FP) PO PRN (14:34)
[2023-03-19] MEDS ORDERED: P-EPHED 60MG/TRIPROLIDI 2.5MG TABLET PO PRN (14:34)
[2023-03-19] MEDS ORDERED: AMMONIUM LACTATE 12% LOTION 225 GM BOTTLE TP PRN (14:34)
[2023-03-19] MEDS ORDERED: BENZONATATE 200 MG CAPSULE PO PRN (14:34)
[2023-03-19] MEDS ORDERED: MAGNESIUM HYDROX 2400MG/30ML ORAL SUSPENSION 30 ML CUP PO PRN (14:34)
[2023-03-19] MEDS ORDERED: LOPERAMIDE HCL 2 MG CAPSULE PO PRN (14:34)
[2023-03-19] MEDS ORDERED: MAG HYDROX/AL HYDROX/SIMETH 30 ML UNIT-DOSE CUP PO PRN (14:34)
[2023-03-19] MEDS ORDERED: NICOTINE POLACRILEX 2 MG GUM BUC PRN (14:34)
[2023-03-19] MEDS ORDERED: CEFUROXIME AXETIL 500 MG TABLET PO SCH ×2 (14:45→21:39)
[2023-03-19] MEDS: traZODone HCL 100 MG TABLET (FP) PO SCH (21:32)
[2023-03-19] MEDS: THIAMINE HCL 100 MG TABLET (FP) PO SCH (21:32)
[2023-03-19] MEDS: BENZOCAINE/MENTHOL (CHLORASEPTIC ) LOZENGE MM PRN (21:33)
[2023-03-19] MEDS: CEFUROXIME AXETIL 500 MG TABLET PO SCH (21:44)
[2023-03-20] MEDS: AZITHROMYCIN 250 MG TABLET PO SCH (09:50)
[2023-03-20] MEDS: PRENATAL VITAMINS W/ FOLIC ACID TABLET (FP) PO SCH (09:51)
[2023-03-20] MEDS: CEFUROXIME AXETIL 500 MG TABLET PO SCH ×2 (09:51→21:18)
[2023-03-20] MEDS ORDERED: PNEUMOC 20-VAL CONJ-DIP CRM/PF 0.5 ML SYRINGE IM ONE (12:00)
[2023-03-20] MEDS: traZODone HCL 100 MG TABLET (FP) PO SCH (21:17)
[2023-03-20] MEDS: THIAMINE HCL 100 MG TABLET (FP) PO SCH (21:17)
[2023-03-20] MEDS: MELATONIN 5 MG TABLETS PO PRN (21:17)
[2023-03-20] MEDS: PALIPERIDONE 6 MG TAB.ER.24 PO SCH ×2 (21:18→22:44)
[2023-03-21] MEDS: AZITHROMYCIN 250 MG TABLET PO SCH (09:26)
[2023-03-21] MEDS: CEFUROXIME AXETIL 500 MG TABLET PO SCH ×2 (09:26→21:31)
[2023-03-21] MEDS: PRENATAL VITAMINS W/ FOLIC ACID TABLET (FP) PO SCH (09:27)
[2023-03-21] MEDS: THIAMINE HCL 100 MG TABLET (FP) PO SCH (21:32)
[2023-03-21] MEDS: PALIPERIDONE 6 MG TAB.ER.24 PO SCH (21:32)
[2023-03-21] MEDS: traZODone HCL 100 MG TABLET (FP) PO SCH (21:32)
[2023-03-21] MEDS: MELATONIN 5 MG TABLETS PO PRN (21:32)
[2023-03-21] MEDS: BENZOCAINE/MENTHOL (CHLORASEPTIC ) LOZENGE MM PRN (21:34)
[2023-03-22] MEDS: PRENATAL VITAMINS W/ FOLIC ACID TABLET (FP) PO SCH (09:42)
[2023-03-22] MEDS: CEFUROXIME AXETIL 500 MG TABLET PO SCH ×2 (09:43→21:08)
[2023-03-22] MEDS: THIAMINE HCL 100 MG TABLET (FP) PO SCH (21:08)
[2023-03-22] MEDS: traZODone HCL 100 MG TABLET (FP) PO SCH (21:08)
[2023-03-22] MEDS: MELATONIN 5 MG TABLETS PO PRN (21:09)
[2023-03-22] MEDS: PALIPERIDONE 6 MG TAB.ER.24 PO SCH (21:09)
[2023-03-23] MEDS: CEFUROXIME AXETIL 500 MG TABLET PO SCH ×2 (09:44→21:28)
[2023-03-23] MEDS: PRENATAL VITAMINS W/ FOLIC ACID TABLET (FP) PO SCH (09:45)
[2023-03-23] MEDS: THIAMINE HCL 100 MG TABLET (FP) PO SCH (21:27)
[2023-03-23] MEDS: MELATONIN 5 MG TABLETS PO PRN (21:27)
[2023-03-23] MEDS: traZODone HCL 100 MG TABLET (FP) PO SCH (21:28)
[2023-03-23] MEDS: PALIPERIDONE 6 MG TAB.ER.24 PO SCH (21:28)
[2023-03-24] MEDS: CEFUROXIME AXETIL 500 MG TABLET PO SCH ×2 (09:55→21:27)
[2023-03-24] MEDS: PRENATAL VITAMINS W/ FOLIC ACID TABLET (FP) PO SCH (09:55)
[2023-03-24] MEDS: GABAPENTIN 100 MG CAPSULE PO SCH ×2 (13:38→21:27)
[2023-03-24] MEDS: MELATONIN 5 MG TABLETS PO PRN (21:27)
[2023-03-24] MEDS: PALIPERIDONE 6 MG TAB.ER.24 PO SCH (21:27)
[2023-03-24] MEDS: THIAMINE HCL 100 MG TABLET (FP) PO SCH (21:27)
[2023-03-24] MEDS: traZODone HCL 100 MG TABLET (FP) PO SCH (21:27)
[2023-03-25] MEDS: GABAPENTIN 100 MG CAPSULE PO SCH ×3 (07:31→21:19)
[2023-03-25] MEDS: PRENATAL VITAMINS W/ FOLIC ACID TABLET (FP) PO SCH (10:07)
[2023-03-25] MEDS: CEFUROXIME AXETIL 500 MG TABLET PO SCH ×2 (10:07→21:19)
[2023-03-25] MEDS: THIAMINE HCL 100 MG TABLET (FP) PO SCH (21:18)
[2023-03-25] MEDS: MELATONIN 5 MG TABLETS PO PRN (21:18)
[2023-03-25] MEDS: traZODone HCL 100 MG TABLET (FP) PO SCH (21:19)
[2023-03-25] MEDS: PALIPERIDONE 6 MG TAB.ER.24 PO SCH (21:19)
[2023-03-26] MEDS: GABAPENTIN 100 MG CAPSULE PO SCH ×3 (06:37→21:06)
[2023-03-26] MEDS: PRENATAL VITAMINS W/ FOLIC ACID TABLET (FP) PO SCH (10:18)
[2023-03-26] MEDS: PALIPERIDONE 6 MG TAB.ER.24 PO SCH (21:06)
[2023-03-26] MEDS: MELATONIN 5 MG TABLETS PO PRN (21:06)
[2023-03-26] MEDS: traZODone HCL 100 MG TABLET (FP) PO SCH (21:06)
[2023-03-26] MEDS: THIAMINE HCL 100 MG TABLET (FP) PO SCH (21:06)
[2023-03-27] MEDS: GABAPENTIN 100 MG CAPSULE PO SCH ×3 (06:37→21:43)
[2023-03-27] MEDS: PRENATAL VITAMINS W/ FOLIC ACID TABLET (FP) PO SCH (09:40)
[2023-03-27] MEDS ORDERED: PNEUMOCOCCAL 23 VACCINE 0.5 ML VIAL IM ONE (12:00)
[2023-03-27] MEDS: traZODone HCL 100 MG TABLET (FP) PO SCH (21:43)
[2023-03-27] MEDS: THIAMINE HCL 100 MG TABLET (FP) PO SCH (21:43)
[2023-03-27] MEDS: PALIPERIDONE 6 MG TAB.ER.24 PO SCH (21:45)
[2023-03-27] MEDS: MELATONIN 5 MG TABLETS PO PRN (21:45)
[2023-03-28] MEDS: GABAPENTIN 100 MG CAPSULE PO SCH ×3 (06:30→21:24)
[2023-03-28] MEDS: PRENATAL VITAMINS W/ FOLIC ACID TABLET (FP) PO SCH (09:39)
[2023-03-28] MEDS ORDERED: PNEUMOC 20-VAL CONJ-DIP CRM/PF 0.5 ML SYRINGE IM ONE (12:00)
[2023-03-28] MEDS: traZODone HCL 100 MG TABLET (FP) PO SCH (21:24)
[2023-03-28] MEDS: MELATONIN 5 MG TABLETS PO PRN (21:24)
[2023-03-28] MEDS: THIAMINE HCL 100 MG TABLET (FP) PO SCH (21:24)
[2023-03-28] MEDS: PALIPERIDONE 6 MG TAB.ER.24 PO SCH (21:25)
[2023-03-29] MEDS: GABAPENTIN 100 MG CAPSULE PO SCH ×3 (06:15→21:10)
[2023-03-29] MEDS: PRENATAL VITAMINS W/ FOLIC ACID TABLET (FP) PO SCH (10:02)
[2023-03-29] MEDS: POLYETHYLENE GLYCOL (HEALTHYLAX) 3350 17 GM PACKET PO PRN (10:03)
[2023-03-29] MEDS: PALIPERIDONE 6 MG TAB.ER.24 PO SCH (21:10)
[2023-03-29] MEDS: THIAMINE HCL 100 MG TABLET (FP) PO SCH (21:10)
[2023-03-29] MEDS: traZODone HCL 100 MG TABLET (FP) PO SCH (21:10)
[2023-03-29] MEDS: MELATONIN 5 MG TABLETS PO PRN (21:10)
[2023-03-29] MEDS: BENZOCAINE/MENTHOL (CHLORASEPTIC ) LOZENGE MM PRN (21:11)
[2023-03-30] MEDS: GABAPENTIN 100 MG CAPSULE PO SCH ×3 (07:40→21:22)
[2023-03-30] MEDS: PRENATAL VITAMINS W/ FOLIC ACID TABLET (FP) PO SCH (09:49)
[2023-03-30] MEDS: POLYETHYLENE GLYCOL (HEALTHYLAX) 3350 17 GM PACKET PO PRN (09:52)
[2023-03-30] MEDS: MELATONIN 5 MG TABLETS PO PRN (21:21)
[2023-03-30] MEDS: THIAMINE HCL 100 MG TABLET (FP) PO SCH (21:21)
[2023-03-30] MEDS: traZODone HCL 100 MG TABLET (FP) PO SCH (21:22)
[2023-03-30] MEDS: PALIPERIDONE 6 MG TAB.ER.24 PO SCH (21:23)
[2023-03-31] MEDS: GABAPENTIN 100 MG CAPSULE PO SCH ×3 (06:28→21:13)
[2023-03-31] MEDS: PRENATAL VITAMINS W/ FOLIC ACID TABLET (FP) PO SCH (09:51)
[2023-03-31] MEDS: POLYETHYLENE GLYCOL (HEALTHYLAX) 3350 17 GM PACKET PO PRN (09:52)
[2023-03-31] MEDS: traZODone HCL 100 MG TABLET (FP) PO SCH (21:13)
[2023-03-31] MEDS: MELATONIN 5 MG TABLETS PO PRN (21:14)
[2023-03-31] MEDS: THIAMINE HCL 100 MG TABLET (FP) PO SCH (21:14)
[2023-03-31] MEDS: PALIPERIDONE 6 MG TAB.ER.24 PO SCH (21:14)
[2023-04-01] MEDS: GABAPENTIN 100 MG CAPSULE PO SCH ×3 (06:22→21:25)
[2023-04-01] MEDS: PRENATAL VITAMINS W/ FOLIC ACID TABLET (FP) PO SCH (10:00)
[2023-04-01] MEDS: POLYETHYLENE GLYCOL (HEALTHYLAX) 3350 17 GM PACKET PO PRN (10:01)
[2023-04-01] MEDS: MELATONIN 5 MG TABLETS PO PRN (21:25)
[2023-04-01] MEDS: THIAMINE HCL 100 MG TABLET (FP) PO SCH (21:25)
[2023-04-01] MEDS: PALIPERIDONE 6 MG TAB.ER.24 PO SCH (21:26)
[2023-04-01] MEDS: traZODone HCL 100 MG TABLET (FP) PO SCH (21:26)
[2023-04-02] MEDS: GABAPENTIN 100 MG CAPSULE PO SCH ×4 (06:28→21:25)
[2023-04-02] MEDS: PRENATAL VITAMINS W/ FOLIC ACID TABLET (FP) PO SCH (10:17)
[2023-04-02] MEDS: MELATONIN 5 MG TABLETS PO PRN (21:24)
[2023-04-02] MEDS: traZODone HCL 100 MG TABLET (FP) PO SCH (21:24)
[2023-04-02] MEDS: THIAMINE HCL 100 MG TABLET (FP) PO SCH (21:24)
[2023-04-02] MEDS: PALIPERIDONE 6 MG TAB.ER.24 PO SCH (21:25)
[2023-04-03] MEDS: GABAPENTIN 100 MG CAPSULE PO SCH ×3 (06:35→21:04)
[2023-04-03] MEDS: PRENATAL VITAMINS W/ FOLIC ACID TABLET (FP) PO SCH (10:26)
[2023-04-03] MEDS: POLYETHYLENE GLYCOL (HEALTHYLAX) 3350 17 GM PACKET PO PRN (10:28)
[2023-04-03] MEDS: THIAMINE HCL 100 MG TABLET (FP) PO SCH (21:03)
[2023-04-03] MEDS: MELATONIN 5 MG TABLETS PO PRN (21:03)
[2023-04-03] MEDS: PALIPERIDONE 6 MG TAB.ER.24 PO SCH (21:04)
[2023-04-03] MEDS: traZODone HCL 100 MG TABLET (FP) PO SCH (21:04)
[2023-04-04] MEDS: GABAPENTIN 100 MG CAPSULE PO SCH ×3 (06:31→21:26)
[2023-04-04] MEDS: PRENATAL VITAMINS W/ FOLIC ACID TABLET (FP) PO SCH (10:09)
[2023-04-04] MEDS: POLYETHYLENE GLYCOL (HEALTHYLAX) 3350 17 GM PACKET PO PRN (10:12)
[2023-04-04] MEDS: THIAMINE HCL 100 MG TABLET (FP) PO SCH (21:25)
[2023-04-04] MEDS: traZODone HCL 100 MG TABLET (FP) PO SCH (21:25)
[2023-04-04] MEDS: MELATONIN 5 MG TABLETS PO PRN (21:25)
[2023-04-04] MEDS: PALIPERIDONE 6 MG TAB.ER.24 PO SCH (21:26)
[2023-04-05] MEDS: GABAPENTIN 100 MG CAPSULE PO SCH ×3 (06:27→21:28)
[2023-04-05] MEDS: PRENATAL VITAMINS W/ FOLIC ACID TABLET (FP) PO SCH (09:49)
[2023-04-05] MEDS: POLYETHYLENE GLYCOL (HEALTHYLAX) 3350 17 GM PACKET PO PRN (09:50)
[2023-04-05] MEDS: MELATONIN 5 MG TABLETS PO PRN (21:28)
[2023-04-05] MEDS: traZODone HCL 100 MG TABLET (FP) PO SCH (21:28)
[2023-04-05] MEDS: THIAMINE HCL 100 MG TABLET (FP) PO SCH (21:28)
[2023-04-05] MEDS: PALIPERIDONE 6 MG TAB.ER.24 PO SCH (21:29)
[2023-04-06] MEDS: GABAPENTIN 100 MG CAPSULE PO SCH ×3 (06:25→21:12)
[2023-04-06] MEDS: PRENATAL VITAMINS W/ FOLIC ACID TABLET (FP) PO SCH (10:23)
[2023-04-06] MEDS: POLYETHYLENE GLYCOL (HEALTHYLAX) 3350 17 GM PACKET PO PRN (10:25)
[2023-04-06] MEDS: MELATONIN 5 MG TABLETS PO PRN (21:12)
[2023-04-06] MEDS: THIAMINE HCL 100 MG TABLET (FP) PO SCH (21:12)
[2023-04-06] MEDS: traZODone HCL 100 MG TABLET (FP) PO SCH (21:12)
[2023-04-06] MEDS: PALIPERIDONE 6 MG TAB.ER.24 PO SCH (21:13)
[2023-04-06] MEDS: ROSUVASTATIN CA 10 MG TABLET PO SCH (23:29)
[2023-04-07] MEDS: GABAPENTIN 100 MG CAPSULE PO SCH ×3 (06:34→21:50)
[2023-04-07] MEDS: POLYETHYLENE GLYCOL (HEALTHYLAX) 3350 17 GM PACKET PO PRN (09:51)
[2023-04-07] MEDS: PRENATAL VITAMINS W/ FOLIC ACID TABLET (FP) PO SCH (10:12)
[2023-04-07] MEDS: ROSUVASTATIN CA 10 MG TABLET PO SCH (21:50)
[2023-04-07] MEDS: THIAMINE HCL 100 MG TABLET (FP) PO SCH (21:50)
[2023-04-07] MEDS: PALIPERIDONE 6 MG TAB.ER.24 PO SCH (21:50)
[2023-04-07] MEDS: traZODone HCL 100 MG TABLET (FP) PO SCH (21:50)
[2023-04-08] MEDS: GABAPENTIN 100 MG CAPSULE PO SCH ×3 (06:52→21:08)
[2023-04-08] MEDS: PRENATAL VITAMINS W/ FOLIC ACID TABLET (FP) PO SCH (09:58)
[2023-04-08] MEDS: POLYETHYLENE GLYCOL (HEALTHYLAX) 3350 17 GM PACKET PO PRN (09:58)
[2023-04-08] MEDS: THIAMINE HCL 100 MG TABLET (FP) PO SCH (21:08)
[2023-04-08] MEDS: MELATONIN 5 MG TABLETS PO PRN (21:08)
[2023-04-08] MEDS: ROSUVASTATIN CA 10 MG TABLET PO SCH (21:08)
[2023-04-08] MEDS: traZODone HCL 100 MG TABLET (FP) PO SCH (21:08)
[2023-04-08] MEDS: PALIPERIDONE 6 MG TAB.ER.24 PO SCH (21:09)
[2023-04-09] MEDS: GABAPENTIN 100 MG CAPSULE PO SCH ×3 (06:36→21:06)
[2023-04-09] MEDS: POLYETHYLENE GLYCOL (HEALTHYLAX) 3350 17 GM PACKET PO PRN (10:23)
[2023-04-09] MEDS: PRENATAL VITAMINS W/ FOLIC ACID TABLET (FP) PO SCH (10:23)
[2023-04-09] MEDS: PALIPERIDONE 6 MG TAB.ER.24 PO SCH (21:06)
[2023-04-09] MEDS: traZODone HCL 100 MG TABLET (FP) PO SCH (21:06)
[2023-04-09] MEDS: THIAMINE HCL 100 MG TABLET (FP) PO SCH (21:06)
[2023-04-09] MEDS: ROSUVASTATIN CA 10 MG TABLET PO SCH (21:06)
[2023-04-09] MEDS: MELATONIN 5 MG TABLETS PO PRN (21:06)
[2023-04-10] MEDS: GABAPENTIN 100 MG CAPSULE PO SCH ×3 (06:42→20:59)
[2023-04-10] MEDS: PRENATAL VITAMINS W/ FOLIC ACID TABLET (FP) PO SCH (09:45)
[2023-04-10] MEDS: traZODone HCL 100 MG TABLET (FP) PO SCH (20:59)
[2023-04-10] MEDS: ROSUVASTATIN CA 10 MG TABLET PO SCH (21:00)
[2023-04-10] MEDS: PALIPERIDONE 6 MG TAB.ER.24 PO SCH (21:00)
[2023-04-10] MEDS: THIAMINE HCL 100 MG TABLET (FP) PO SCH (21:00)
[2023-04-10] MEDS: MELATONIN 5 MG TABLETS PO PRN (21:00)
[2023-04-11] MEDS: GABAPENTIN 100 MG CAPSULE PO SCH ×3 (06:35→21:10)
[2023-04-11] MEDS: PRENATAL VITAMINS W/ FOLIC ACID TABLET (FP) PO SCH (10:02)
[2023-04-11] MEDS: POLYETHYLENE GLYCOL (HEALTHYLAX) 3350 17 GM PACKET PO PRN (10:02)
[2023-04-11] MEDS: traZODone HCL 100 MG TABLET (FP) PO SCH (21:10)
[2023-04-11] MEDS: THIAMINE HCL 100 MG TABLET (FP) PO SCH (21:10)
[2023-04-11] MEDS: MELATONIN 5 MG TABLETS PO PRN (21:10)
[2023-04-11] MEDS: ROSUVASTATIN CA 10 MG TABLET PO SCH (21:10)
[2023-04-11] MEDS: PALIPERIDONE 6 MG TAB.ER.24 PO SCH (21:11)
[2023-04-12] MEDS: GABAPENTIN 100 MG CAPSULE PO SCH ×3 (06:24→21:04)
[2023-04-12] MEDS: PRENATAL VITAMINS W/ FOLIC ACID TABLET (FP) PO SCH (09:51)
[2023-04-12] MEDS: POLYETHYLENE GLYCOL (HEALTHYLAX) 3350 17 GM PACKET PO PRN (09:51)
[2023-04-12] MEDS: MELATONIN 5 MG TABLETS PO PRN (21:03)
[2023-04-12] MEDS: THIAMINE HCL 100 MG TABLET (FP) PO SCH (21:03)
[2023-04-12] MEDS: traZODone HCL 100 MG TABLET (FP) PO SCH (21:04)
[2023-04-12] MEDS: PALIPERIDONE 6 MG TAB.ER.24 PO SCH (21:04)
[2023-04-12] MEDS: ROSUVASTATIN CA 10 MG TABLET PO SCH (21:04)
[2023-04-13] MEDS: GABAPENTIN 100 MG CAPSULE PO SCH ×3 (06:37→21:05)
[2023-04-13] MEDS: POLYETHYLENE GLYCOL (HEALTHYLAX) 3350 17 GM PACKET PO PRN (09:45)
[2023-04-13] MEDS: PRENATAL VITAMINS W/ FOLIC ACID TABLET (FP) PO SCH (09:45)
[2023-04-13] MEDS: ROSUVASTATIN CA 10 MG TABLET PO SCH (21:05)
[2023-04-13] MEDS: THIAMINE HCL 100 MG TABLET (FP) PO SCH (21:05)
[2023-04-13] MEDS: traZODone HCL 100 MG TABLET (FP) PO SCH (21:05)
[2023-04-13] MEDS: MELATONIN 5 MG TABLETS PO PRN (21:05)
[2023-04-13] MEDS: PALIPERIDONE 6 MG TAB.ER.24 PO SCH (21:06)
[2023-04-14] MEDS: GABAPENTIN 100 MG CAPSULE PO SCH ×3 (06:24→21:13)
[2023-04-14] MEDS: POLYETHYLENE GLYCOL (HEALTHYLAX) 3350 17 GM PACKET PO PRN (09:54)
[2023-04-14] MEDS: PRENATAL VITAMINS W/ FOLIC ACID TABLET (FP) PO SCH (09:54)
[2023-04-14] MEDS: traZODone HCL 100 MG TABLET (FP) PO SCH (21:12)
[2023-04-14] MEDS: PALIPERIDONE 6 MG TAB.ER.24 PO SCH (21:13)
[2023-04-14] MEDS: MELATONIN 5 MG TABLETS PO PRN (21:13)
[2023-04-14] MEDS: ROSUVASTATIN CA 10 MG TABLET PO SCH (21:13)
[2023-04-14] MEDS: THIAMINE HCL 100 MG TABLET (FP) PO SCH (21:13)
[2023-04-15] MEDS: GABAPENTIN 100 MG CAPSULE PO SCH (06:39)
[2023-04-15 09:12] VITALS: BP 106/71; PULSE 79; RESP 18; TEMP 97.1
[2023-04-15] MEDS: PRENATAL VITAMINS W/ FOLIC ACID TABLET (FP) PO SCH (09:16)
[2023-04-15] MEDS: POLYETHYLENE GLYCOL (HEALTHYLAX) 3350 17 GM PACKET PO PRN (09:17)
== END 2023-04-15 09:30 | disposition home or self-care (01) | DRG 895 ==
LOC: YASAS 13:36 → Y3E 15:19
PROVIDERS: ADMIT Allergy & Immunology; ATTEND Psychiatry & Neurology Pain Medicine
PROC: HZ42ZZZ Group Counseling for Substance Abuse Treatment, Cognitive-Behavioral (ICD-10-PCS; principal; 2023-03-19)
DX: F11.20 Opioid dependence, uncomplicated (principal); J18.9 Pneumonia, unspecified organism; F14.20 Cocaine dependence, uncomplicated; F19.282 Other psychoactive substance dependence with psychoactive substance-induced sleep disorder; F10.20 Alcohol dependence, uncomplicated; F17.210 Nicotine dependence, cigarettes, uncomplicated; F31.9 Bipolar disorder, unspecified; F25.0 Schizoaffective disorder, bipolar type; G47.33 Obstructive sleep apnea (adult) (pediatric); J02.0 Streptococcal pharyngitis; E66.9 Obesity, unspecified; Z68.38 Body mass index [BMI] 38.0-38.9, adult
CPT/HCPCS: 87811; 90677